=== PATIENT | male | born 1945 | race Caucasian/White ===

== ENCOUNTER 2017-08-29 07:46 | Day surgery (SDC) | payer MEDICARE ==
[~2017-08-29] VITALS: Ht 180.3 cm; Wt 90.5 kg
[~2017-08-29 07:46] MED LIST: BUPIVACAINE/PF 0.5% ONE; HEPARIN 1,000 UNITS/ML, 10ML ONE; PROTAMINE SULFATE 10 MG/ML, 5ML ONE; THROMBIN 5,000 UNIT VIAL TP ONE
[2017-08-29] MEDS ORDERED: SODIUM CHLORIDE 0.9% 1,000 ML IV SCH (08:42)
[2017-08-29] MEDS ORDERED: CARV3.1212 PO (08:57)
[2017-08-29] MEDS ORDERED: FISH OIL PO (08:57)
[2017-08-29] MEDS ORDERED: FURO40TA6 PO (08:57)
[2017-08-29] MEDS ORDERED: MVI PO (08:57)
[2017-08-29] MEDS ORDERED: INSU100V8 SQ (08:57)
[2017-08-29] MEDS ORDERED: FLUT1AER INH (08:57)
[2017-08-29 09:24] LABS: HEMATOCRIT 34.8 % (39.2-51.8); HEMOGLOBIN 11.3 g/dL (13.7-18.0); WHITE BLOOD COUNT 6.7 x10^3/uL (3.4-10)
[2017-08-29 09:25] VITALS: BP 136/82
[2017-08-29] MEDS ORDERED: CEFAZOLIN 1,000 MG ONE (11:09)
[2017-08-29] MEDS ORDERED: MIDAZOLAM 1 MG/ML, 2ML ONE (11:09)
[2017-08-29] MEDS ORDERED: DEXAMETHASONE 4 MG/ML, 5ML ONE (11:09)
[2017-08-29] MEDS ORDERED: HEPARIN 1,000 UNITS/ML, 10ML ONE (11:42)
[2017-08-29] MEDS ORDERED: MEPERIDINE/PF 25MG/0.5ML IVPush PRN (12:00)
[2017-08-29] MEDS ORDERED: HYDROmorphone 1 MG/ML, 1ML IV PRN (12:00)
[2017-08-29] MEDS ORDERED: ONDANSETRON 2MG/ML, 2ML IVPush PRN (12:00)
[2017-08-29] MEDS ORDERED: hydrALAzine 20 MG/ML, 1ML IV PRN (12:00)
[2017-08-29] MEDS ORDERED: FENTANYL PF 100 MCG/2ML IV PRN (12:00)
[2017-08-29] MEDS ORDERED: OXYcodone 5 MG/5 ML ORAL.SOL UDC PO PRN (12:00)
[2017-08-29] MEDS ORDERED: LABETALOL 5MG/ML, 20ML IV PRN (12:00)
[2017-08-29] MEDS ORDERED: PROMETHAZINE 25 MG/ML, 1ML IV PRN (12:00)
[2017-08-29] MEDS ORDERED: INSULIN REGULAR 100 UNITS/ML, 3ML VIAL SQ-INSULIN SCH (16:00)
== END 2017-08-29 16:10 ==
LOC: OUT 07:46
PROVIDERS: ATTEND Surgery
DX: E11.22 Type 2 diabetes mellitus with diabetic chronic kidney disease (principal); N18.6 End stage renal disease; I99.8 Other disorder of circulatory system; E78.5 Hyperlipidemia, unspecified; I25.10 Atherosclerotic heart disease of native coronary artery without angina pectoris; Z95.0 Presence of cardiac pacemaker; I25.2 Old myocardial infarction
CPT/HCPCS: 36415; 36561; 36825; 71010; 76000; 80047; 82962; 85025; 85610; 85730; 93005; C1751; C1768; J0690; J1100; J1644; J2250; J2720; J3490; J7030

== ENCOUNTER 2017-09-15 18:47 | Inpatient (IN) | payer MEDICARE ==
[~2017-09-15] VITALS: Ht 180.3 cm; Wt 84.4 kg
[~2017-09-15 18:47] MED LIST changes: -BUPIVACAINE/PF 0.5% ONE; +CARV3.1212 PO; +FISH OIL PO; +FLUT1AER INH; +FURO40TA6 PO; -HEPARIN 1,000 UNITS/ML, 10ML ONE; +INSU100V8 SQ; +MVI PO; -PROTAMINE SULFATE 10 MG/ML, 5ML ONE; -THROMBIN 5,000 UNIT VIAL TP ONE
[2017-09-16] VITALS (7 sets, daily range): BP systolic 108–161; BP diastolic 61–132
[2017-09-16] MEDS ORDERED: hydrALAzine 20 MG/ML, 1ML IVPush PRN (02:00)
[2017-09-16] MEDS ORDERED: LORazepam 2 MG/ML, 1ML IVPush PRN (02:00)
[2017-09-16] MEDS ORDERED: PLEASE ENTER HEIGHT AND WEIGHT MC SCH (02:30)
[2017-09-16] MEDS ORDERED: HYDROmorphone 1 MG/ML, 1ML ONE ×4 (03:12→23:14)
[2017-09-16] MEDS ORDERED: HEPARIN 5,000 UNITS/ML, 1ML IV ONE (03:30)
[2017-09-16] MEDS: HYDROmorphone 2 MG/ML, 1ML IVPush PRN ×4 (03:33→23:32)
[2017-09-16] MEDS: INSULIN ASPART 100 UNITS/ML, PEN SQ-INSULIN SCH ×4 (07:00→20:29)
[2017-09-16] MEDS ORDERED: PANTOPRAZOLE 40 MG IV IVPush SCH (07:30)
[2017-09-16] MEDS: CARVEDILOL 3.125 MG TABLET PO SCH (08:51)
[2017-09-16] MEDS: FUROSEMIDE 40 MG TABLET PO SCH (08:51)
[2017-09-16] MEDS ORDERED: DEXTROSE 50%, 50ML VIAL ONE (08:59)
[2017-09-16] MEDS ORDERED: HEPARIN 5,000 UNITS/ML, 1ML SQ SCH (09:00)
[2017-09-16] MEDS ORDERED: DEXTROSE 4 GM TAB.CHEW PO PRN (09:00)
[2017-09-16] MEDS ORDERED: DEXTROSE 50%, 50ML VIAL IVPush ONE (09:00)
[2017-09-16] MEDS ORDERED: GLUCAGON 1 MG IM PRN (09:00)
[2017-09-16] MEDS: SODIUM CHLORIDE FLUSH 10ML SYR IVF SCH ×4 (09:02→20:27)
[2017-09-16] MEDS: HEPARIN 25,000 UNITS/500ML PMX 500 ML IV PRN (09:25)
[2017-09-16] MEDS: DEXTROSE 50%, 50ML SYRINGE IVPush PRN (09:25)
[2017-09-16 19:29] LABS: BLOOD UREA NITROGEN 30 mg/dL (7-18)
[2017-09-16] MEDS ORDERED: THROMBIN 5,000 UNIT VIAL TP ONE ×2 (20:18→21:42)
[2017-09-16] MEDS ORDERED: BUPIVACAINE/PF 0.5% ONE (20:19)
[2017-09-16] MEDS ORDERED: FENTANYL PF 100 MCG/2ML ONE ×3 (20:19→22:05)
[2017-09-16] MEDS ORDERED: HEPARIN 1,000 UNITS/ML, 30ML ONE (20:19)
[2017-09-16] MEDS ORDERED: EPINEPHRINE 1 MG/ML, 1ML ONE (20:20)
[2017-09-16] MEDS ORDERED: SUCCINYLCHOLINE 20 MG/ML, 10ML ONE (20:31)
[2017-09-16] MEDS ORDERED: PROPOFOL 10 MG/ML, 20ML ONE (20:31)
[2017-09-16] MEDS ORDERED: ROCURONIUM 10 MG/ML ONE (20:31)
[2017-09-16] MEDS ORDERED: CEFAZOLIN 1,000 MG ONE (20:31)
[2017-09-16] MEDS ORDERED: PROTAMINE SULFATE 10 MG/ML, 5ML ONE (21:31)
[2017-09-16] MEDS ORDERED: VISIPAQUE 270 MG/ML, 50ML BOTTLE IV ONE (21:40)
[2017-09-16] MEDS ORDERED: HEPARIN 1,000 UNITS/ML, 30ML IVPush ONE (21:42)
[2017-09-16] MEDS ORDERED: OXYcodone 5 MG/5 ML ORAL.SOL UDC PO PRN (22:00)
[2017-09-16] MEDS ORDERED: hydrALAzine 20 MG/ML, 1ML IV PRN (22:00)
[2017-09-16] MEDS ORDERED: FENTANYL PF 100 MCG/2ML IV PRN (22:00)
[2017-09-16] MEDS ORDERED: ACETAMINOPHEN 325 MG TABLET PO PRN (22:00)
[2017-09-16] MEDS ORDERED: ONDANSETRON 2MG/ML, 2ML IVPush PRN (22:00)
[2017-09-16] MEDS ORDERED: LABETALOL 5MG/ML, 20ML IV PRN (22:00)
[2017-09-16] MEDS ORDERED: HYDROmorphone 1 MG/ML, 1ML IV PRN (22:00)
[2017-09-16] MEDS ORDERED: ACETAMINOPHEN 650 MG/20.3 ML UDC ONE (22:04)
[2017-09-16] MEDS ORDERED: OXYcodone 5 MG/5 ML ORAL.SOL UDC ONE (22:05)
[2017-09-16 22:12] LABS: HEMATOCRIT 35.5 % (39.2-51.8); HEMOGLOBIN 11.4 g/dL (13.7-18.0)
[2017-09-17] VITALS (9 sets, daily range): BP systolic 75–111; BP diastolic 45–65
[2017-09-17] MEDS: HYDROmorphone 2 MG/ML, 1ML IVPush PRN ×2 (04:38→13:54)
[2017-09-17 05:13] LABS: ASPARTATE AMINO TRANSFERASE 12 U/L (15-37); BLOOD UREA NITROGEN 32 mg/dL (7-18)
[2017-09-17 05:18] LABS: HEMATOCRIT 34.4 % (39.2-51.8); HEMOGLOBIN 11.1 g/dL (13.7-18.0); WHITE BLOOD COUNT 10.6 x10^3/uL (3.4-10)
[2017-09-17] MEDS: HEPARIN 25,000 UNITS/500ML PMX 500 ML IV PRN (05:37)
[2017-09-17] MEDS: INSULIN ASPART 100 UNITS/ML, PEN SQ-INSULIN SCH ×4 (07:00→21:00)
[2017-09-17] MEDS: SODIUM CHLORIDE FLUSH 10ML SYR IVF SCH ×4 (09:00→21:00)
[2017-09-17] MEDS: FUROSEMIDE 40 MG TABLET PO SCH (09:00)
[2017-09-17] MEDS: CARVEDILOL 3.125 MG TABLET PO SCH (09:00)
[2017-09-17] MEDS: ONDANSETRON 2MG/ML, 2ML IVPush PRN ×2 (13:26→18:02)
[2017-09-17] MEDS: HEPARIN 5,000 UNITS/ML, 1ML IV PRN (13:37)
[2017-09-17] MEDS ORDERED: HYDROmorphone 1 MG/ML, 1ML ONE (13:49)
[2017-09-17] MEDS: DEXTROSE 50%, 50ML SYRINGE IVPush PRN (14:55)
[2017-09-18] MEDS: HEPARIN 25,000 UNITS/500ML PMX 500 ML IV PRN ×2 (00:37→20:23)
[2017-09-18 00:51] LABS: HEMATOCRIT 30.9 % (39.2-51.8); WHITE BLOOD COUNT 9.8 x10^3/uL (3.4-10)
[2017-09-18 01:01] LABS: BLOOD UREA NITROGEN 19 mg/dL (7-18)
[2017-09-18 01:05] LABS: ASPARTATE AMINO TRANSFERASE 12 U/L (15-37); FERRITIN 419.3 ng/mL (26-388); TOTAL IRON BINDING CAPACITY 140 mcg/dL (250-450)
[2017-09-18] MEDS: HEPARIN 5,000 UNITS/ML, 1ML IV PRN (01:41)
[2017-09-18] MEDS ORDERED: SODIUM CHLORIDE 0.9%, 500ML IVBOLUS ONE (02:30)
[2017-09-18] MEDS ORDERED: PHENYLEPHRINE 10 MG in SODIUM CHLORIDE 0.9% 249 ML IV PRN (03:00)
[2017-09-18] MEDS: PHENYLEPHRINE 20 MG in SODIUM CHLORIDE 0.9% 248 ML IV PRN ×5 (06:37→23:48)
[2017-09-18] MEDS: INSULIN ASPART 100 UNITS/ML, PEN SQ-INSULIN SCH ×4 (07:00→20:26)
[2017-09-18] MEDS ORDERED: SODIUM CHLORIDE 0.9%, 500ML IVBOLUS PRN (09:00)
[2017-09-18] MEDS ORDERED: DARBEPOETIN 60 MCG/ML SQ SCH ×2 (09:00→09:08)
[2017-09-18] MEDS: SODIUM CHLORIDE FLUSH 10ML SYR IVF SCH ×4 (09:19→20:25)
[2017-09-18] MEDS: FUROSEMIDE 40 MG TABLET PO SCH (09:19)
[2017-09-18] MEDS: CARVEDILOL 3.125 MG TABLET PO SCH (09:19)
[2017-09-18] MEDS: IRON SUCROSE COMPLEX 100MG/5ML IV SCH (14:06)
[2017-09-18 14:36] LABS: IS PT STATUS REG ER OR PRE ER? NO
[2017-09-18 15:24] LABS: IS PT STATUS REG ER OR PRE ER? NO
[2017-09-18] MEDS: DOBUTAMINE 250 MG in SODIUM CHLORIDE 0.9% 230 ML IV PRN (20:02)
[2017-09-19] MEDS: DOBUTAMINE 250 MG in SODIUM CHLORIDE 0.9% 230 ML IV PRN ×4 (02:08→22:29)
[2017-09-19 05:46] LABS: HEMATOCRIT 26.8 % (39.2-51.8); WHITE BLOOD COUNT 5.9 x10^3/uL (3.4-10)
[2017-09-19 05:47] LABS: ASPARTATE AMINO TRANSFERASE 13 U/L (15-37); BLOOD UREA NITROGEN 23 mg/dL (7-18)
[2017-09-19] MEDS: INSULIN ASPART 100 UNITS/ML, PEN SQ-INSULIN SCH ×4 (06:00→21:00)
[2017-09-19] MEDS: HEPARIN 5,000 UNITS/ML, 1ML IV PRN (06:28)
[2017-09-19] MEDS: PHENYLEPHRINE 20 MG in SODIUM CHLORIDE 0.9% 248 ML IV PRN (07:15)
[2017-09-19] MEDS: SODIUM CHLORIDE FLUSH 10ML SYR IVF SCH ×4 (09:00→21:00)
[2017-09-19] MEDS: CARVEDILOL 3.125 MG TABLET PO SCH (10:06)
[2017-09-19] MEDS: FUROSEMIDE 40 MG TABLET PO SCH (10:07)
[2017-09-19] MEDS: ACETAMINOPHEN 325 MG TABLET PO PRN (12:12)
[2017-09-19] MEDS: IRON SUCROSE COMPLEX 100MG/5ML IV SCH (12:13)
[2017-09-19] MEDS: ALBUMIN HUMAN 25% 100 ML IV PRN ×4 (13:18→15:17)
[2017-09-20] MEDS ORDERED: SODIUM CHLORIDE 0.9% IV PRN (01:00)
[2017-09-20] MEDS ORDERED: DOBUTAMINE IV PRN (01:00)
[2017-09-20 05:49] LABS: HEMOGLOBIN 8.6 g/dL (13.7-18.0); WHITE BLOOD COUNT 5.9 x10^3/uL (3.4-10)
[2017-09-20 06:08] LABS: ASPARTATE AMINO TRANSFERASE 11 U/L (15-37); BLOOD UREA NITROGEN 22 mg/dL (7-18)
[2017-09-20] MEDS: INSULIN ASPART 100 UNITS/ML, PEN SQ-INSULIN SCH ×2 (07:00→11:00)
[2017-09-20] MEDS: ONDANSETRON 2MG/ML, 2ML IVPush PRN ×2 (08:09→13:25)
[2017-09-20] MEDS: SODIUM CHLORIDE FLUSH 10ML SYR IVF SCH ×2 (08:14→08:15)
[2017-09-20] MEDS ORDERED: CHOLECALCIFEROL 1,000 UNIT TABLET PO SCH (09:00)
[2017-09-20] MEDS: CARVEDILOL 3.125 MG TABLET PO SCH (09:00)
[2017-09-20] MEDS: FUROSEMIDE 40 MG TABLET PO SCH (09:00)
[2017-09-20 09:29] LABS: HEP B SURF. AB < 3.1 mIU/mL (0.0-10.0)
[2017-09-20 09:29] LABS: HIT LOT CART23835/KIT23844
[2017-09-20] MEDS: ALBUMIN HUMAN 25% 100 ML IV PRN ×4 (10:50→13:33)
[2017-09-20 11:11] LABS: HIT OBC PASS; HIT RESULT NEGATIVE (NEGATIVE)
[2017-09-20] MEDS: ACETAMINOPHEN 325 MG TABLET PO PRN (11:26)
[2017-09-20] MEDS: IRON SUCROSE COMPLEX 100MG/5ML IV SCH (13:06)
== END 2017-09-20 14:09 | disposition expired | DRG 252 ==
LOC: 4WST 09-16 01:22 → CSU 09-18 00:06
PROVIDERS: ADMIT Family Medicine; ATTEND Family Medicine
PROC: B31J1ZZ Fluoroscopy of Left Upper Extremity Arteries using Low Osmolar Contrast (ICD-10-PCS; 2017-09-16)
PROC: 03JY3ZZ Inspection of Upper Artery, Percutaneous Approach (ICD-10-PCS; 2017-09-16)
PROC: 03CC3ZZ Extirpation of Matter from Left Radial Artery, Percutaneous Approach (ICD-10-PCS; 2017-09-16)
PROC: 03CA3ZZ Extirpation of Matter from Left Ulnar Artery, Percutaneous Approach (ICD-10-PCS; 2017-09-16)
PROC: 03L80ZZ Occlusion of Left Brachial Artery, Open Approach (ICD-10-PCS; 2017-09-16)
PROC: 03C80ZZ Extirpation of Matter from Left Brachial Artery, Open Approach (ICD-10-PCS; principal; 2017-09-16 20:30)
PROC: 5A1D70Z Performance of Urinary Filtration, Intermittent, Less than 6 Hours Per Day (ICD-10-PCS; 2017-09-17)
PROC: 5A1D70Z Performance of Urinary Filtration, Intermittent, Less than 6 Hours Per Day (ICD-10-PCS; 2017-09-19)
PROC: 5A1D70Z Performance of Urinary Filtration, Intermittent, Less than 6 Hours Per Day (ICD-10-PCS; 2017-09-20)
DX: T82.868A Thrombosis due to vascular prosthetic devices, implants and grafts, initial encounter (principal); N18.6 End stage renal disease; E46 Unspecified protein-calorie malnutrition; D69.6 Thrombocytopenia, unspecified; I82.622 Acute embolism and thrombosis of deep veins of left upper extremity; E11.22 Type 2 diabetes mellitus with diabetic chronic kidney disease; E11.649 Type 2 diabetes mellitus with hypoglycemia without coma; I82.A19 Acute embolism and thrombosis of unspecified axillary vein; E87.5 Hyperkalemia; E11.51 Type 2 diabetes mellitus with diabetic peripheral angiopathy without gangrene; E88.81 Metabolic syndrome and other insulin resistance; D63.1 Anemia in chronic kidney disease; E78.5 Hyperlipidemia, unspecified; I07.1 Rheumatic tricuspid insufficiency; I25.10 Atherosclerotic heart disease of native coronary artery without angina pectoris; I25.5 Ischemic cardiomyopathy; I34.0 Nonrheumatic mitral (valve) insufficiency; I35.8 Other nonrheumatic aortic valve disorders; I50.9 Heart failure, unspecified; Z96.649 Presence of unspecified artificial hip joint; Y83.2 Surgical operation with anastomosis, bypass or graft as the cause of abnormal reaction of the patient, or of later complication, without mention of misadventure at the time of the procedure; Z95.0 Presence of cardiac pacemaker; Z68.26 Body mass index [BMI] 26.0-26.9, adult; I25.2 Old myocardial infarction; Z79.4 Long term (current) use of insulin; Z86.718 Personal history of other venous thrombosis and embolism; Z87.891 Personal history of nicotine dependence; Z95.1 Presence of aortocoronary bypass graft; Z95.5 Presence of coronary angioplasty implant and graft; Z99.2 Dependence on renal dialysis; Z88.8 Allergy status to other drugs, medicaments and biological substances; T82.898A Other specified complication of vascular prosthetic devices, implants and grafts, initial encounter; Z66 Do not resuscitate
CPT/HCPCS: 36415; 71010; 75710; 80048; 80053; 82306; 82533; 82728; 82947; 82962; 83540; 83550; 83735; 83970; 84100; 84443; 84484; 84550; 85025; 85520; 86022; 86704; 86706; 87081; 87340; 93306; J0171; J0690; J0881; J1170; J1644; J1756; J2405; J2704; J2720; J3010; J3490; P9047; Q9966; C1757; C9113; J0330; J1250; J2370; J7040; J7050